=== PATIENT | male | born 1970 | race African-American/Black ===

== ENCOUNTER 2017-09-09 15:45 | Emergency (ER) | payer OTHER ==
[~2017-09-09] VITALS: Ht 200.7 cm; Wt 112.4 kg
[2017-09-09] MEDS ORDERED: CIPROFLOXACIN H10 ML LEFT EYE (19:29)
[2017-09-09 19:48] VITALS: BP 132/87
== END 2017-09-09 19:48 ==
LOC: EME 15:45
DX: S05.02XA Injury of conjunctiva and corneal abrasion without foreign body, left eye, initial encounter (principal); T54.91XA Toxic effect of unspecified corrosive substance, accidental (unintentional), initial encounter; X58.XXXA Exposure to other specified factors, initial encounter; Y93.E9 Activity, other interior property and clothing maintenance; Y92.149 Unspecified place in prison as the place of occurrence of the external cause; H10.212 Acute toxic conjunctivitis, left eye
CPT/HCPCS: 99281; 99283